=== PATIENT | female | born 1955 | race Caucasian/White ===

== ENCOUNTER → 2019-03-23 | Outpatient (CLI) | payer BC ==
--- NOTE | 2019-03-23 15:48 | NEURO WORKBENCH EEG REPORT ---
EEG Report Patient: Linda Lala ID: [id number] Referring Doctor: Karina Velez Date: 03/23/19 Reason for study: Evaluate Epileptiform activity Medications: Keppra, Vitamin D3, Zyrtec, MVI, Magnesium History: This is a 64 year old female with a history of left temporal cavernoma and seizures. Only two seizures are reported, with last one being on October 16, 2018 when she passed out in the shower. She also has a history of headaches. This EEG was requested for evaluation of epileptiform activity. EEG Interpretation: This EEG was recorded during wakefulness and stage I sleep. The awake EEG is characterized by a well organized background with a well developed and reactive posterior dominant rhythm (PDR) of approximately 11-12 Hz. The remainder of the background consisted of low amplitude frontally predominant beta activity. The EEG is symmetric in amplitudes and frequencies. There was occasional Mu rhythm noted in the bilateral central regions. Photic stimulation resulted in photic driving, and there was no epileptiform activity elicited with photic stimulation. Hyperventilation resulted in the appearance of mild background slowing (normal for age) and no epileptiform activity was elicited. Stage I sleep was achieved and characterized by slow rolling eye movements, and slowing of the background rhythm by approximately 1-2 Hz. Stage II sleep was not recorded. There were no epileptiform abnormalities (no sharp waves and no spikes). There were no seizures. The EKG showed a regular rhythm with typically 60-70 beats per minute. EEG Impression: This EEG is within normal limits for age. There was no epileptiform activity or seizures. However, it should be noted that the patient is taking Keppra which could potentially suppress interictal epileptiform activity. It should also be noted that given the patients reported history of left temporal cavernoma, particular attention was paid to the left temporal regions of the EEG upon review and no epileptiform activity or abnormal background activity or asymmetry was noted in this region. A single normal routine EEG does not rule out the possibility of epilepsy. If there is high clinical suspicion for epilepsy, then additional EEG evaluation should be considered with a sleep-deprived EEG or more prolonged EEG monitoring. INTERPRETING NEUROLOGIST: Allen Flowers MD Board certified by the [place] [employer] in Neurology, Clinical Neurophysiology, and Sleep Medicine [facility]
== END ==
LOC: NEURO 07:58
PROVIDERS: ATTEND Psychiatry & Neurology Neurology
DX: G40.109 Localization-related (focal) (partial) symptomatic epilepsy and epileptic syndromes with simple partial seizures, not intractable, without status epilepticus (principal)
CPT/HCPCS: 95819